=== PATIENT | female | born 1975 ===

== ENCOUNTER 2018-01-28 17:21 | Emergency (ER) | payer OTHER, MEDICAID ==
[2018-01-28 17:32] VITALS: BP 124/80; PULSE 79; RESP 18; TEMP 98; O2SAT 100
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
--- NOTE | 2018-01-29 10:36 | RAD ---
PROCEDURE: Cervical Spine Radiographs. HISTORY: Pain. COMPARISON: None. FINDINGS: BONES: Straightening of the normal cervical lordosis. . Minimal anterior spondylotic ridging C5-6 No fracture. Dens Intact. DISC SPACES: C5-6 mild disc space narrowing. SOFT TISSUES: Normal. No prevertebral soft tissue swelling. OTHER FINDINGS: None. IMPRESSION: No fracture or subluxation. Cervical spine straightening compatible with positioning and/or muscle spasm. Correlate clinically. C5-6 anterior cervical spondylosis with intervening disc space narrowing consistent with degenerative change.
== END 2018-01-28 18:42 | disposition home or self-care (01) ==
LOC: C.ER 17:21
DX: S13.4XXA Sprain of ligaments of cervical spine, initial encounter (principal); V43.52XA Car driver injured in collision with other type car in traffic accident, initial encounter; Y92.410 Unspecified street and highway as the place of occurrence of the external cause